=== PATIENT | male | born 1935 | race Hispanic/Latino ===

== ENCOUNTER 2023-04-10 14:53 | Emergency (ER) | payer MEDICARE ==
[~2023-04-10] VITALS: Ht 165.1 cm; Wt 56.7 kg
[~2023-04-10 14:53] MED LIST: ACET-2079 PO; ATOR40TA71 PO; DONE5TAB33 PO; GABA-529 PO; LISI5TAB21 PO
[2023-04-10 16:24] LABS: BASOPHILS # (AUTO) 0.06 K/uL (0.00-0.20); BASOPHILS % (AUTO) 0.6 % (0.0-5.0); HEMATOCRIT 21.2 % (42-54); IMMATURE GRANULOCYTE ABSOLUTE 0.33 K/uL (0-1); LYMPHOCYTES # (AUTO) 0.6 K/uL (1.0-4.8); LYMPHOCYTES % (AUTO) 5.7 % (21.0-51.0); MEAN CORPUSCULAR HGB CONC 32.1 g/dL (32.0-36.0); MEAN CORPUSCULAR VOLUME 93.4 fL (79-99); MONOCYTES # (AUTO) 1.4 K/uL (0.1-1.0); MONOCYTES % (AUTO) 13.2 % (3.0-13.0); NEUTROPHILS # (AUTO) 8.3 K/uL (1.8-7.7); NEUTROPHILS % (AUTO) 77.4 % (40.0-77.0); NUCLEATED RED BLOOD CELLS 2.9 % (0.0-0.19); PLATELET COUNT (AUTO) 25 K/uL (130-400); RED BLOOD CELL COUNT(AUTO) 2.27 MIL/uL (4.50-6.20); RED CELL DISTRIBUTION WIDTH 17.6 % (11.0-15.5); WHITE BLOOD COUNT (AUTO) 10.8 K/uL (4.8-10.8)
[2023-04-10 16:49] LABS: POTASSIUM 3.4 mmol/L (3.5-5.1)
[2023-04-10 16:53] LABS: BAND NEUTROPHILS % (MANUAL) 10 % (0-2); LYMPHOCYTES % (MANUAL) 7 % (22-44); MAN.DIFF COMMENT-IMPRESSION MANUAL DIFFERENTIAL; MONOCYTES % (MANUAL) 3 % (2-9); REACTIVE LYMPHOCYTES 5 % (0-0); SEGMENTED NEUTROPHILS % 75 % (40-70); TOTAL CELLS COUNTED 100; WBC MORPHOLOGY SMUDGE CELLS 1+
[2023-04-10 16:54] LABS: PLATELET MORPHOLOGY COMMENT MARKED DECREASE
[2023-04-10 21:35] VITALS: BP 124/45; PULSE 63; RESP 21; O2SAT 97
== END 2023-04-11 00:58 | disposition home or self-care (01) ==
LOC: EDH 14:53
DX: D64.9 Anemia, unspecified (principal); E78.00 Pure hypercholesterolemia, unspecified; I10 Essential (primary) hypertension; Z79.899 Other long term (current) drug therapy; Z86.73 Personal history of transient ischemic attack (TIA), and cerebral infarction without residual deficits; Z95.810 Presence of automatic (implantable) cardiac defibrillator
CPT/HCPCS: 99285; 36430; 82270; 80048; 85025; 86850; 86900; 86901; 86923; 36415; P9016